=== PATIENT | female | born 1980 | race Caucasian/White ===

== ENCOUNTER → 2017-08-06 | Outpatient (CLI) | payer BC | LOC: MC.RAD 13:00 | DX: N64.89 Other specified disorders of breast (principal); N64.4 Mastodynia; R59.0 Localized enlarged lymph nodes ==

== ENCOUNTER → 2017-08-25 | Outpatient (CLI) | payer BC | LOC: MC.RAD 13:00 | DX: Z01.89 Encounter for other specified special examinations (principal) ==

== ENCOUNTER → 2019-08-16 | Outpatient (CLI) | payer BC | LOC: MC.RAD 07:15 | DX: Z12.31 Encounter for screening mammogram for malignant neoplasm of breast (principal) ==

== ENCOUNTER 2024-08-31 08:56 | Day surgery (SDC) | payer OTHER ==
[~2024-08-31] VITALS: Ht 167.6 cm; Wt 95.0 kg
[~2024-08-31 08:56] MED LIST: LR 1,000 ML IV SCH; Ondansetron 4 MG/2 ML VIAL IV PRN
[2024-08-31] MEDS ORDERED: HCTZ12.5TAB PO (09:42)
[2024-08-31] MEDS ORDERED: MULTIPLE VITAMI1 CAP PO (09:42)
[2024-08-31 09:46] VITALS: BP 124/91; PULSE 72; TEMP 97
[2024-08-31] MEDS ORDERED: FLORAJEN A20 Billion PO (09:46)
--- NOTE | 2024-08-31 09:51 | NUR ---
Pt admitted to [facility] 5. Admission assessments complete. Consent signed. Medications, allergies, and medications confirmed. Pt is alert, oriented x4, makes needs known. Gait steady. 20G IV inserted into right hand, LR infusing without difficulty. at bedside. Questions answered.
[2024-08-31 11:12] VITALS: BP 115/75; PULSE 76; TEMP 97.3
--- NOTE | 2024-08-31 11:12 | NUR ---
PATIENT AMBULATED TO CHAIR WITH STEADY GAIT, ASSIST OF 2. ALERT AND AWAKE. DENIES PAIN, NAUSEA AND SHORTNESS OF BREATH. BREATHING REGULAR AND UNLABORED ON ROOM AIR. SKIN WARM AND DRY. IV IN PLACE. NURSE HANDOFF COMPLETED IN ROOM. SEE CHART FOR VITAL SIGNS. PATIENT HAD APPLE JUICE AND CHOCOLATE PUDDING. FOOD AND DRINK TOLERATED WELL. CALL LIGHT IN REACH. SPOUSE PRESENT IN ROOM.
[2024-08-31 11:15] VITALS: BP 118/73; PULSE 76
[2024-08-31 11:30] VITALS: BP 123/87; PULSE 68
--- NOTE | 2024-08-31 11:42 | NUR ---
1120: MET WITH PATIENT AND SPOUSE TO DISCUSS PROCEDURE. 1136: DISCHARGE TEACHING COMPLETED WITH PRINTED EDUCATION AND INSTRUCTIONS SENT HOME WITH PATIENT. PATIENT VERBALIZED UNDERSTANDING OF TEACHING. 1139: IV REMOVED. GAUZE AND COBAN PLACED OVER SITE. 1142: PATIENT DISCHARGED HOME WITH SPOUSE TRANSPORT.
== END 2024-08-31 11:42 | disposition home or self-care (01) ==
LOC: SDCO 08:56
DX: Z12.11 Encounter for screening for malignant neoplasm of colon (principal)
CPT/HCPCS: J2704; J7120